=== PATIENT | male | born 1990 | race Caucasian/White ===

== ENCOUNTER 2020-04-04 07:17 | Emergency (ER) | payer OTHER ==
[~2020-04-04] VITALS: Ht 175.3 cm; Wt 102.1 kg
[2020-04-04 07:26] VITALS: BP_SYST 150
[2020-04-04 08:05] LABS: BASOPHILS % (AUTO) 0.7 % (0.0-2.0); EOSINOPHILS # (AUTO) 0.1 K/uL (0.0-0.4); EOSINOPHILS % (AUTO) 2.3 % (0.0-4.0); HEMOGLOBIN 14.5 g/dL (14.0-18.0); LYMPHOCYTES # (AUTO) 2.5 K/uL (1.0-5.5); LYMPHOCYTES % (AUTO) 40.2 % (20.5-51.5); MEAN CORPUSCULAR HEMOGLOBIN 30 pg (27-31); MEAN CORPUSCULAR HGB CONC 35 % (32-36); MEAN CORPUSCULAR VOLUME 87 fL (79.0-98.0); MONOCYTES # (AUTO) 0.5 K/uL (0.0-1.0); MONOCYTES % (AUTO) 8.5 % (1.7-9.3); NEUTROPHILS % (AUTO) 48.3 % (40.0-70.0); PLATELET COUNT (AUTO) 236 K/uL (130-430); RED BLOOD CELL COUNT(AUTO) 4.85 MIL/uL (4.2-6.2); WHITE BLOOD COUNT (AUTO) 6.3 K/uL (4.8-10.8)
[2020-04-04 08:19] LABS: CREATININE 0.95 mg/dL (0.55-1.30); POTASSIUM 3.5 mmol/L (3.5-5.1)
[2020-04-04 08:25] LABS: TOTAL BILIRUBIN 0.4 mg/dL (0.0-1.0)
[2020-04-04 09:57] VITALS: BP_SYST 150
== END 2020-04-04 09:57 | disposition home or self-care (01) ==
LOC: SED 07:17
DX: R07.82 Intercostal pain (principal)
CPT/HCPCS: 36415; 71045; 80053; 84484; 85025; 93005; 99285

== ENCOUNTER 2021-10-04 12:33 | Emergency (ER) | payer SELFPAY ==
[~2021-10-04] VITALS: Ht 177.8 cm; Wt 99.8 kg
[2021-10-04 12:35] VITALS: BP_SYST 143
--- NOTE | 2021-10-04 12:35 | NUR ---
BROUGHT BACK TO BED #8 AND TRIAGED, REPORT GIVEN TO ELAINE
--- NOTE | 2021-10-04 12:45 | NUR ---
PT STATES SWOLLEN GLANDS IN NECK FOR A WEEK, STATES HE THOUGHT HE WAS JUST GETTING SICK BUT STILL GETTING WORSE. PT STATES NOW WITH A SORE THROAT.
--- NOTE | 2021-10-04 13:05 | NUR ---
DR GARCIA AT BEDSIDE FOR EVALUATION
[2021-10-04] MEDS ORDERED: IBUP-1969 PO (13:40)
[2021-10-04] MEDS ORDERED: CEPH-548 PO (13:40)
[2021-10-04 13:59] VITALS: BP_SYST 143
--- NOTE | 2021-10-04 14:26 | NUR ---
Patient given written and verbal discharge instructions and verbalizes understanding. ER MD discussed with patient the results and treatment provided. Patient in stable condition. ID arm band removed. Rx of CEPHALEXIN AND IBUPROFEN given. Patient educated on pain management and to follow up with PMD. Pain Scale 0/10. Opportunity for questions provided and answered. Medication side effect fact sheet provided.
== END 2021-10-04 13:59 | disposition home or self-care (01) ==
LOC: SED 12:33
DX: R59.0 Localized enlarged lymph nodes (principal)
CPT/HCPCS: 99283

== ENCOUNTER 2023-05-25 21:57 | Emergency (ER) | payer SELFPAY ==
[~2023-05-25] VITALS: Ht 177.8 cm; Wt 95.3 kg
[~2023-05-25 21:57] MED LIST: CEPH-548 PO; IBUP-1969 PO
[2023-05-25 22:03] VITALS: BP_SYST 127; PULSE 86; RESP 20; TEMP 98.6; O2SAT 99
[2023-05-25] MEDS ORDERED: IBUPROFEN 600 MG TABLET PO ONE (23:15)
[2023-05-25] MEDS ORDERED: CYCLOBENZAPRINE HCL 10 MG TABLET (FLEXERIL) PO ONE (23:15)
[2023-05-25] MEDS ORDERED: ACETAMINOPHEN 500 MG TABLET PO ONE (23:15)
[2023-05-25] MEDS ORDERED: guaiFENesin 200 MG/10 ML UDC PO ONE (23:15)
[2023-05-25] MEDS ORDERED: GUAI100S14 PO (23:17)
[2023-05-25] MEDS ORDERED: ACET-2634 PO (23:17)
[2023-05-25] MEDS ORDERED: IBUP-1969 PO (23:17)
[2023-05-25] MEDS ORDERED: LIDO1ADH77 TP (23:17)
[2023-05-26 00:33] VITALS: BP_SYST 127; PULSE 86; RESP 20; TEMP 98.6; O2SAT 99
== END 2023-05-26 00:33 | disposition home or self-care (01) ==
LOC: SED 21:57
DX: R07.89 Other chest pain (principal); R05.9 Cough, unspecified; Z79.899 Other long term (current) drug therapy
CPT/HCPCS: 71045; 93005; 99284

== ENCOUNTER 2023-08-27 03:09 | Emergency (ER) | payer SELFPAY ==
[~2023-08-27] VITALS: Ht 177.8 cm; Wt 93.0 kg
[~2023-08-27 03:09] MED LIST changes: +ACET-2634 PO; +GUAI100S14 PO; +LIDO1ADH77 TP
[2023-08-27 03:27] VITALS: BP_SYST 169; PULSE 72; RESP 18; TEMP 98; O2SAT 100
[2023-08-27] MEDS: NACL 0.9% 1,000 ML IV ONE (04:40)
[2023-08-27] MEDS: ONDANSETRON HCL 4 MG/2 ML VIAL IVP ONE ×2 (04:41→06:30)
[2023-08-27 05:16] LABS: BASOPHILS # (AUTO) 0.1 K/uL (0.0-0.2); EOSINOPHILS % (AUTO) 0.3 % (0.0-4.0); HEMATOCRIT 46.3 % (36-54); HEMOGLOBIN 15.9 g/dL (14.0-18.0); LYMPHOCYTES # (AUTO) 1.6 K/uL (1.0-5.5); MEAN CORPUSCULAR HEMOGLOBIN 31 pg (27-31); MEAN CORPUSCULAR HGB CONC 34 % (32-36); MEAN CORPUSCULAR VOLUME 89 fL (79.0-98.0); MONOCYTES # (AUTO) 0.5 K/uL (0.0-1.0); MONOCYTES % (AUTO) 6.7 % (1.7-9.3); NEUTROPHILS # (AUTO) 4.8 K/uL (1.8-7.7); PLATELET COUNT (AUTO) 297 K/uL (130-430); RED BLOOD CELL COUNT(AUTO) 5.22 MIL/uL (4.2-6.2)
[2023-08-27 05:31] LABS: CALCIUM 8.8 mg/dL (8.4-11.0); CREATININE 0.97 mg/dL (0.55-1.30)
[2023-08-27] MEDS: LORazepam 2 MG/ML VIAL IVP ONE (05:32)
[2023-08-27 05:35] LABS: ALBUMIN 4.2 g/dL (3.4-4.8); BILIRUBIN,DIRECT 0.2 mg/dL (0.0-0.3); TOTAL BILIRUBIN 0.4 mg/dL (0.0-1.0); TOTAL PROTEIN, SERUM 8.3 g/dL (6.4-8.3)
[2023-08-27] MEDS: MAG HYDROX/AL HYDROX/SIMETH 30 ML, DICYCLOMINE HCL 20 MG, LIDOCAINE VISCOUS 2% 15ML (PO... PO ONE (06:04)
[2023-08-27 06:28] LABS: BILIRUBIN,URINE NEGATIVE (NEGATIVE); BLOOD, URINE NEGATIVE (NEGATIVE); CLARITY/URINE CLEAR (CLEAR); COLOR,URINE YELLOW (YELLOW); GLUCOSE,URINE NEGATIVE (NEGATIVE); KETONES,URINE NEGATIVE (NEGATIVE); LEUKOCYTE ESTERASE ,URINE NEGATIVE (NEGATIVE); NITRITE, URINE NEGATIVE (NEGATIVE); PROTEIN URINE NEGATIVE (NEGATIVE); UROBILINOGEN,URINE 0.2 (0.2-1.0)
[2023-08-27] MEDS: METOCLOPRAMIDE HCL 10 MG/2 ML VIAL IVP ONE (07:50)
[2023-08-27 08:16] VITALS: BP_SYST 151; PULSE 73; RESP 20; TEMP 97.6; O2SAT 99
== END 2023-08-27 08:17 | disposition home or self-care (01) ==
LOC: SED 03:09
DX: F10.129 Alcohol abuse with intoxication, unspecified (principal); F14.10 Cocaine abuse, uncomplicated; R11.2 Nausea with vomiting, unspecified; Y90.9 Presence of alcohol in blood, level not specified
CPT/HCPCS: 99285; 96374; 71045; 96375; 96361; 80076; 80048; 81001; 83690; 85025; 36415; 96376; 81003; J2060; J2765; J2405; J2001